=== PATIENT | female | born 1955 | race Caucasian/White ===

== ENCOUNTER 2019-09-01 07:30 | Emergency (ER) | payer SELFPAY ==
[~2019-09-01] VITALS: Ht 162.6 cm; Wt 66.2 kg
[2019-09-01 07:42] VITALS: Ht 162.6 cm; Wt 66.2 kg
[2019-09-01 09:41] VITALS: BP 141/46
== END 2019-09-01 09:41 | disposition home or self-care (01) ==
LOC: ED 07:30
DX: S42.292A Other displaced fracture of upper end of left humerus, initial encounter for closed fracture (principal); W18.30XA Fall on same level, unspecified, initial encounter; Y93.89 Activity, other specified; Y92.89 Other specified places as the place of occurrence of the external cause; Y99.8 Other external cause status
CPT/HCPCS: Q0092